=== PATIENT | male | born 1965 | race Caucasian/White ===

== ENCOUNTER → 2020-05-09 | Outpatient (CLI) | payer BC | LOC: COL.LAB 13:48 | DX: Z20.828 Contact with and (suspected) exposure to other viral communicable diseases (principal); R53.83 Other fatigue; M79.10 Myalgia, unspecified site ==

== ENCOUNTER → 2020-05-14 | Outpatient (CLI) | payer BC | LOC: COL.LAB 08:39 | DX: A08.4 Viral intestinal infection, unspecified (principal); A02.9 Salmonella infection, unspecified; Z20.828 Contact with and (suspected) exposure to other viral communicable diseases ==